=== PATIENT | male | born 1985 | race Caucasian/White ===

== ENCOUNTER 2018-11-08 16:59 | Emergency (ER) | payer OTHER ==
[~2018-11-08] VITALS: Ht 185.4 cm; Wt 94.8 kg
[2018-11-08 17:27] VITALS: Ht 185.4 cm; Wt 94.8 kg
[2018-11-08 19:00] LABS: UA SPECIFIC GRAVITY 1.015 (1.005-1.035); microscopic required? YES; urine erythrocyte 3+ (NEGATIVE)
[2018-11-08 19:01] LABS: BASOPHIL % 0.2 % (0-2); PLATELET COUNT 207 x10^3mcL (130-400); RED CELL DISTRIBUTION WIDTH 12.9 % (11.5-14.5)
[2018-11-08 19:02] LABS: CALCIUM 8.9 mg/dL (8.5-10.1); CARBON DIOXIDE 26.8 mmol/L (21-32); CHLORIDE SERUM 101 mmol/L (98-107); CREATININE SERUM 1.2 mg/dL (0.7-1.3); GFR1 > 60 mL/min; GLUCOSE SERUM 89 mg/dL (74-106); POTASSIUM SERUM 3.6 mmol/L (3.5-5.1); SODIUM SERUM 137 mmol/L (136-145)
[2018-11-08 19:06] LABS: ALBUMIN 4.1 g/dL (3.4-5.0); ALKALINE PHOSPHATASE 50 U/L (46-116); ALT/SGPT 28 U/L (16-63); AMYLASE 92 U/L (25-115); AST/SGOT 45 U/L (15-37); BILIRUBIN TOTAL 0.8 mg/dL (0.20-1.00); LIPASE 154 IU/L (73-393); TOTAL PROTEIN, SERUM 7.7 g/dL (6.4-8.2)
[2018-11-08 19:10] LABS: AMPHETAMINE QUAL UR NONE DETECTED (See below)
[2018-11-08 21:01] VITALS: BP 126/78
== END 2018-11-08 21:01 | disposition home or self-care (01) ==
LOC: ED 16:59
PROVIDERS: Specialist
DX: N23 Unspecified renal colic (principal); R63.0 Anorexia; R19.7 Diarrhea, unspecified
CPT/HCPCS: G0480; J1885; J3010; J7030; Q0092